=== PATIENT | female | born 1960 | race Caucasian/White ===

== ENCOUNTER 2017-10-01 20:04 | Emergency (ER) | END 2017-10-01 23:47 | disposition home or self-care (01) ==

== ENCOUNTER 2018-09-14 19:48 | Emergency (ER) | payer OTHER ==
[~2018-09-14] VITALS: Ht 149.9 cm; Wt 96.0 kg
[~2018-09-14 19:48] MED LIST: MAG355OR15 PO; MECL-77 PO; OMEP20CA16 PO; ONDA4TAB14 PO
[2018-09-14 19:54] VITALS: Ht 149.9 cm; Wt 96.0 kg
--- NOTE | 2018-09-14 20:50 | ERD ---
ER Documentation Chief Complaint Chief Complaint vaginal pain/irritation/burning sensation s/p papsmear [id number] HPI This is a 58-year-old female who presents here in emergency department with complaints of dysuria. Stated that she was seen by her [facility] a month ago and had a Pap smear done. LMP: Stated that she does not have this anymore. Her last mental period was 5 years ago. Denies headache, head injury, loss of consciousness, dizziness, neck pain, neck stiffness, throat pain, difficulty swallowing, difficulty breathing lying flat, shoulder pain, chest pain, back pain, abdominal pain, nausea, vomiting, constipation, diarrhea, or possibility being , loss of bowel and bladder control, trauma, injury, falls, difficulty walking due to pain, numbness or tingling sensation, calf pain, recent travel, recent major surgery in the last 3 weeks, calf pain, recent long travel, recent exposure to any illness, recent antibiotic use in the last 3 months, fever, chills, seizures. Past medical history: Surgical history: Social: Denies smoking, use of alcoholic beverages, use of illegal drugs. ROS All systems reviewed and are negative except as per history of present illness. Medications Home Meds Active Scripts Phenazopyridine Hcl* (Pyridium*) 200 Mg Tab, 200 MG PO TID PRN for URINARY PAIN, #6 TAB Prov:CECILIA HAM 09/14/18 Omeprazole* (Omeprazole*) 40 Mg Capsule.dr, 40 MG PO DAILY, #30 CAP Prov:CECILIA HAM 09/14/18 Ibuprofen* (Motrin*) 800 Mg Tab, 800 MG PO Q6H PRN for PAIN AND OR ELEVATED TEMP, #30 TAB Prov:CECILIA HAM 09/14/18 Ondansetron (Ondansetron Odt) 4 Mg Tab.rapdis, 4 MG PO Q6H PRN for NAUSEA AND/OR VOMITING, #10 TAB Prov:REYNALDO REILLY DO 10/01/17 Meclizine Hcl* (Meclizine Hcl*) 25 Mg Tablet, 25 MG PO Q8H PRN for DIZZINESS, #20 TAB Prov:REYNALDO REILLY DO 10/01/17 Reported Medications Mag Hydrox/Al Hydrox/Simeth (Maalox Plus X-Strength Susp) 355 Ml Oral.susp, 10 ML PO TID 02/18/15 Omeprazole* (Omeprazole*) 20 Mg Capsule.dr, 20 MG PO DAILY, CAP 02/18/15 Allergies Allergies: Coded Allergies: No Known Allergy (Unverified , 02/18/15) PMhx/Soc History of Surgery: No Anesthesia Reaction: No Hx Neurological Disorder: No Hx Respiratory Disorders: No Hx Cardiac Disorders: Yes (HTN) Hx Psychiatric Problems: No Hx Miscellaneous Medical Probl: Yes (Gastritis) Hx Alcohol Use: No Hx Substance Use: No Hx Tobacco Use: No Smoking Status: Never smoker Physical Exam Vitals Vital Signs Date Temp Pulse Resp B/P (MAP) Pulse Ox O2 O2 Flow FiO2 Time Delivery Rate 09/14/18 97.8 78 19 151/83 100 Room Air 22:11 (105) 09/14/18 98.4 80 20 175/96 98 19:54 (122) Physical Exam Const: No acute distress Head: Atraumatic Eyes: Normal Conjunctiva ENT: Normal External Ears, Nose and Mouth. Neck: Full range of motion. No meningismus. Resp: Clear to auscultation bilaterally Cardio: Regular rate and rhythm, no murmurs Abd: Soft, non tender, non distended. Normal bowel sounds. Negative Malik sign. Negative Uli sign (heel jar test). Negative psoas sign. Negative Rovsing sign. No CVA tenderness. Able to jump twice without developing lower abdominal pain. Ambulatory with steady gait and without pain to abdomen. Skin: No petechiae or rashes. Examined with female certified peer specialist, Queenie EMT. No vesicular lesions. No skin tenting. No signs of severe dehydration. Back: No midline or flank tenderness Ext: No cyanosis, or edema Neur: Awake and alert. No neurological deficits. Psych: Normal Mood and Affect Results 24 hrs Laboratory Tests Test 09/14/18 20:50 Urine Color YELLOW Urine Clarity SLIGHTLY CLOUDY Urine pH 5.0 Urine Specific [place] 1.026 Urine Ketones NEGATIVE mg/dL Urine Nitrite NEGATIVE mg/dL Urine Bilirubin NEGATIVE mg/dL Urine Urobilinogen 2+ mg/dL Urine Leukocyte Esterase NEGATIVE Alex/ul Urine Microscopic RBC 31 /HPF Urine Microscopic WBC 3 /HPF Urine Squamous Epithelial Cells FEW /HPF Urine Bacteria FEW /HPF Urine Mucus FEW /HPF Urine Hemoglobin 3+ mg/dL Urine Glucose NEGATIVE mg/dL Urine Total Protein 1+ mg/dl Current Medications Medications Dose Sig/Steven Start Time Status Last (Trade) Ordered Route PRN Stop Time Admin Dose Reason Admin 200 mg ONCE ONCE 09/14/18 DC 09/14/18 Phenazopyridi PO 22:00 22:06 ne HCl 09/14/18 22:01 (Pyridium) Procedures/MDM Diagnostic tests: Urinalysis: Reviewed. Culture urine: Sent. Treatment: Refuses. Re-evaluation: Denies abdominal pain. Negative Malik sign. Negative Milo sign (heel jar test). Negative psoas sign. Negative Rovsing sign. No CVA tenderness. Able to jump 3 times without developing abdominal pain. Ambulatory with steady gait without pain to abdomen and pelvis. Differential diagnosis I have low suspicion for sepsis, pyelonephritis, obstructing kidney stones, septic stone, PID. Final diagnosis: Dysuria. Prescription: Motrin. Omeprazole. Pyridium. Follow-up with PCP in the next 24-48 hours. Follow-up with [facility] in the next 24 to 48 hours. Come back here in the emergency department for any new symptoms or any worsening symptoms. All questions and concerns were answered. Patient and family members verbalized understanding and agreed with plan of care. Hemodynamically stable on discharge. Departure Diagnosis: Primary Impression: Dysuria Condition: Stable Additional Instructions: Follow-up with PCP in the next 24-48 hours. Follow-up with [facility] in the next 24 to 48 hours. Come back here in the emergency department for any new symptoms or any worsening symptoms. CECILIA HAM September 14, 2018 20:50
[2018-09-14] MEDS ORDERED: PHEN-538 PO (21:57)
[2018-09-14] MEDS ORDERED: IBUP800T48 PO (21:57)
[2018-09-14] MEDS ORDERED: OMEP40CA6 PO (21:57)
[2018-09-14] MEDS ORDERED: PHENAZOPYRIDINE 100 MG TAB PO ONE (22:00)
[2018-09-14 22:11] VITALS: BP 151/83; PULSE 78; RESP 19
== END 2018-09-14 22:13 | disposition home or self-care (01) ==
LOC: FTE 19:48
DX: R30.0 Dysuria (principal); I10 Essential (primary) hypertension
CPT/HCPCS: 81001; 87086; Z7502; Z7610; 99283